=== PATIENT | female | born 1990 | race Caucasian/White ===

== ENCOUNTER 2019-02-10 20:43 | Emergency (ER) | payer MEDICAID, OTHER ==
[2019-02-11] MEDS ORDERED: CYCLOBENZAPRINE HCL 10 MG TABLET PO ONE (00:25)
[2019-02-11] MEDS ORDERED: KETOROLAC TROMETHAMINE 60 MG/2 ML SDV IM ONE (00:25)
[2019-02-11] MEDS ORDERED: LIDOCAINE 5% (700 MG) TRANSDERMAL ADH..PATCH TP ONE (00:26)
--- NOTE | 2019-02-11 00:32 | ER Document Report ---
ED General - General Chief Complaint: Low Back Pain Stated Complaint: BACK INJURY Time Seen by Provider: 02/10/19 23:55 Primary Care Provider: [facility] [Other] - Follow up tomorrow LYNNE MCCLELLAN MD [ACTIVE STAFF] - Follow up as needed Mode of Arrival: Ambulatory Information source: Patient TRAVEL OUTSIDE OF THE [place] IN LAST 30 DAYS: No - HPI Patient complains to provider of: Low back pain Onset: This morning Onset/Duration: Sudden Quality of pain: Sharp Severity: Severe Pain Level: 5 Associated symptoms: None Exacerbated by: Movement, Walking Relieved by: Denies Similar symptoms previously: No Recently seen / treated by doctor: No Notes: 28-year-old female coming in today with low back pain. 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 She felt a snap sensation in the low part of her back. Came here to be evaluated. Denies bladder bowel dysfunction. Denies saddle anesthesia. Denies focal weakness. No previous history of back trouble. - Related Data Allergies/Adverse Reactions: povidone-iodine [From Betadine] Allergy (Severe, Verified 02/10/19 21:00) Soap [From Betadine] Allergy (Severe, Verified 02/10/19 21:00) Past Medical History - General Information source: Patient - Social History Smoking Status: Unknown if Ever Smoked Family History: Reviewed & Not Pertinent Patient has suicidal ideation: No Patient has homicidal ideation: No Pulmonary Medical History: Reports: Hx Asthma Neurological Medical History: Reports: Hx Migraine Renal/ Medical History: Denies: Hx Peritoneal Dialysis - Immunizations Immunizations up to date: Yes Hx Diphtheria, Pertussis, Tetanus Vaccination: No - unknown Review of Systems - Review of Systems Notes: Constitutional: No fevers. No chills. EENT: No eye redness. No eye pain. No ear pain. No sore throat. Cardiovascular: No chest pain. No palpitations. Respiratory: No cough. No shortness of breath. No respiratory distress. Gastrointestinal: No abdominal pain. No nausea, vomiting, or diarrhea. Genitourinary: Atraumatic. No lesions. No pain. No discharge. Musculoskeletal: Atraumatic. No swelling. No deformities. Positive for low back pain Skin: No rash or lesions. Lymphatic: No swollen lymph nodes. Neurologic: No headache. No syncope. Psychiatric: No suicidal or homicidal ideation. Physical Exam - Vital signs Vitals: Temp Pulse Resp BP Pulse Ox 97.3 F 77 16 138/80 H 100 02/10/19 22:19 02/10/19 22:19 02/10/19 22:19 02/10/19 22:19 02/10/19 22:19 - Notes Notes: General: Well-developed, well-nourished. In no acute distress. Non-toxic appearing. Cardiac: Well-perfused. Regular rate and rhythm. No murmurs, rubs, or gallops. Pulmonary: No respiratory distress. No cyanosis. Bilateral lung fiels are clear to auscultation. Abdominal: Non-distended. Non-rigid. Bowels sounds are present in all four quadr ants. No guarding or rebound. HEENT: Head is atraumatic. Conjunctivae not reddened. No tearing. PERRL. EOMI. Orbits atraumatic. No periorbital swelling or erythema. Oropharynx is without erythema, swelling, or exudates. Neck: Supple. No adenopathy. No meningismus. Dermatologic: Warm with good turgor. No rash. Atraumatic. Chest: Atraumatic. No chest wall tenderness to palpation. Musculoskeletal: Moves all extremities well. No range of motion deficits. There is tenderness to the mid lumbosacral region in the right lumbosacral region. There is no bony step-off. Genitourinary: Examination deferred Neurologic: No gross neurologic deficits. Psychiatric: Normal mood. Course - Re-evaluation Re-evalutation: 02/11/19 00:31 Initial workup for low back injury. X-rays being done. Medications ordered. 02/11/19 02:21 Apparently the patient was concerned because she thought that we were not offering her an MRI because we thought that she did not have the ability to pay for one. I had a lengthy conversation with the patient and her father at her request to explain why we were not doing an MRI scan tonight. After a long conversation, the patient does understand that there is a protocol for when an MRI scan can be ordered in the emergency department and that the patient did not meet criteria for an emergent MRI of her back. 02/11/19 02:27 Patient is still in a fair amount of pain. We will go ahead and give her some subcutaneous Dilaudid and some Zofran. And we will recheck her shortly to see how she is feeling. 02/11/19 03:06 Patient is feeling significantly better after the Dilaudid shot and is feeling pretty to go home. Again we discussed the process that is ahead. Discussed her prescriptions and how to proceed from here. She is content with the plan and her father is also understanding where to go from here she understands that we are here for her if they need us. - Vital Signs Vital signs: Temp Pulse Resp BP Pulse Ox 97.3 F 77 16 138/80 H 100 02/10/19 22:19 02/10/19 22:19 02/10/19 22:19 02/10/19 22:19 02/10/19 22:19 Discharge - Discharge Clinical Impression: Low back pain Qualifiers: Chronicity: acute Back pain laterality: unspecified Sciatica presence: without sciatica Qualified Code(s): M54.5 - Low back pain Condition: Good Disposition: HOME, SELF-CARE Instructions: Ice Packs ([facility]), Low Back Pain ([facility]), Muscle Strain ([facility]), Oral Narcotic Medication ([facility]) Additional Instructions: As per our discussion, you need to work diligently to get this Workmen's Comp. claim started and follow-up as soon as possible with the Workmen's Comp. doctor so that further evaluation and treatment can take place. You are always welcome to return to the emergency department if you are having worsening symptoms. Prescriptions: Tizanidine HCl [Zanaflex 4 Mg Tablet] 4 mg PO Q6HP PRN #20 tablet PRN Reason: Hydrocodone/Acetaminophen [Delong 5-325 Tablet] 1 - 2 each PO Q6H #15 tablet Naproxen 500 mg PO BID 5 Days #14 tablet Forms: Special Work Note Referrals: [facility] [Other] - Follow up tomorrow LYNNE MCCLELLAN MD [ACTIVE STAFF] - Follow up as needed
--- NOTE | 2019-02-11 01:20 | RADIOLOGY REPORT (SQ) ---
EXAM: X-ray lumbar spine AP, lateral and obliques CLINICAL DATA: 28-year-old female with low back pain TECHNICAL DATA: AP, both obliques, lateral and coned lateral x-ray views of the lumbosacral junction. Comparison: 02/11/2019 at 12:44 AM. FINDINGS: Five lumbar type vertebrae are identified. The vertebral body height and intervertebral disc space height are normal. The alignment is normal. There is no evidence of fracture or subluxation. There are no significant degenerative changes of the lumbar spine. The pedicles appear intact. Bone mineralization is normal. The sacroiliac joints are within normal limits. IMPRESSION: Normal radiographic examination of the lumbar spine.
[2019-02-11] MEDS ORDERED: ONDANSETRON 4 MG TAB.RAPDIS PO ONE (02:25)
[2019-02-11] MEDS ORDERED: HYDROMORPHONE HCL INJ/PF 2 MG/ML AMPULE SUBCUT ONE (02:25)
[2019-02-11] MEDS ORDERED: HYDROCODONE/ACETAMINOPHEN 5-325 MG (6 TAB/ER DISP) PO PRN (02:57)
[2019-02-11 03:20] VITALS: BP 140/82
== END 2019-02-11 03:19 | disposition home or self-care (01) ==
LOC: ER 20:43
DX: M54.5 Low back pain (principal); X50.0XXA Overexertion from strenuous movement or load, initial encounter; J45.909 Unspecified asthma, uncomplicated
CPT/HCPCS: 99283; 96372; 72110; J1885; S0119; J1170

== ENCOUNTER 2019-07-15 20:44 | Emergency (ER) | payer SELFPAY ==
[2019-07-15 20:54] VITALS: BP 162/86
--- NOTE | 2019-07-15 21:43 | RADIOLOGY REPORT (SQ) ---
2 VIEWS OF RIGHT FOOT AND ANKLE EXAM DATE: 07/15/2019 12:00 AM CDT HISTORY: Bone pain. COMPARISON: None. FINDINGS: No acute fracture or dislocation is seen. The joint spaces are preserved. The soft tissues are unremarkable. IMPRESSION: No acute fracture or malalignment.
[2019-07-15] MEDS ORDERED: IBUPROFEN 800 MG TABLET PO ONE (22:47)
--- NOTE | 2019-07-15 22:51 | ER Document Report ---
ED Extremity Problem, Lower - General Chief Complaint: Fall Injury Stated Complaint: FALL-RIGHT ANKLE PAIN Time Seen by Provider: 07/15/19 22:36 Primary Care Provider: [facility] [Provider Group] - Follow up as needed Mode of Arrival: Wheelchair Information source: Patient Notes: 28-year-old female presented to ED for complaint of pain to her right ankle. [place] popped this morning. She states she walked on it some more than it to 30 she picked up her daughter went home and rested it at 530 when she got up she was not able to walk on the foot. She states she does have tramadol at home and she took 1 of those with no relief. Decided she needed to come to the emergency room to make sure she did not have a break or needed a splint or something. She is alert oriented respirations regular and unlabored speaking in full sentences. TRAVEL OUTSIDE OF THE [place] IN LAST 30 DAYS: No - HPI Patient complains to provider of: Injury, Pain, Swelling Location: Ankle - Right Occurred: This morning Where: Outdoors, Public place Onset/Duration: Gradual Quality of pain: Achy, Throbbing Severity: Moderate Pain Level: 4 Context: Twisted, Wearing shoes Recent injury: Yes Associated symptoms: Painful ambulation Exacerbated by: Hanging down, Movement, Walking Relieved by: Elevation, Ice, Rest - Related Data Allergies/Adverse Reactions: povidone-iodine [From Betadine] Allergy (Severe, Verified 02/10/19 21:00) Soap [From Betadine] Allergy (Severe, Verified 02/10/19 21:00) Past Medical History - General Information source: Patient - Social History Smoking Status: Current Every Day Smoker Cigarette use (# per day): Yes - 2 Cigarettes a day Chew tobacco use (# tins/day): No Smoking Education Provided: Yes - Minutes Frequency of alcohol use: Occasional Drug Abuse: None Occupation: clerk supervisor at [employer] Lives with: Family Family History: Reviewed & Not Pertinent Patient has suicidal ideation: No Patient has homicidal ideation: No - Past Medical History Cardiac Medical History: Reports: None Pulmonary Medical History: Reports: Hx Asthma Neurological Medical History: Reports: Hx Migraine Renal/ Medical History: Denies: Hx Peritoneal Dialysis - Immunizations Immunizations up to date: Yes Hx Diphtheria, Pertussis, Tetanus Vaccination: No - unknown Review of Systems - Review of Systems Constitutional: No symptoms reported EENT: No symptoms reported Cardiovascular: No symptoms reported Respiratory: No symptoms reported Gastrointestinal: No symptoms reported Genitourinary: No symptoms reported Female Genitourinary: No symptoms reported Musculoskeletal: Ankle swelling Skin: No symptoms reported Hematologic/Lymphatic: No symptoms reported Neurological/Psychological: No symptoms reported -: Yes All other systems reviewed and negative Physical Exam - Vital signs Vitals: Temp Pulse Resp BP Pulse Ox 98.9 F 102 H 18 162/86 H 98 07/15/19 20:51 07/15/19 20:51 07/15/19 20:51 07/15/19 20:51 07/15/19 20:51 Interpretation: Normal - General General appearance: Appears well, Alert - HEENT Head: Normocephalic, Atraumatic Eyes: Normal Pupils: PERRL - Respiratory Respiratory status: No respiratory distress Chest status: Nontender Breath sounds: Normal Chest palpation: Normal - Cardiovascular Rhythm: Regular Heart sounds: Normal auscultation Murmur: No - Abdominal Inspection: Normal Distension: No distension Bowel sounds: Normal Tenderness: Nontender Organomegaly: No organomegaly - Back Back: Normal, Nontender - Extremities General upper extremity: Normal inspection, Nontender, Normal color, Normal ROM, Normal temperature General lower extremity: Normal temperature. No: Merlin's sign Ankle: Tender, Ecchymosis, Edema. No: Abrasion, Deformity, Instability, Laceration, Limited ROM, Positive Pike's test, Unable to bear weight Foot: Tender - Painful to bear weight, Ecchymosis, Edema, Metatarsal compress. pain, No evidence of FB. No: Abrasion, Deformity, Instability, Navicular tenderness, Tender 5th metatarsal, Unable to bear weight - Full to bear weight - Neurological Neuro grossly intact: Yes Cognition: Normal Orientation: AAOx4 Colton Coma Scale Eye Opening: Spontaneous Cassidy Coma Scale Verbal: Oriented Cassidy Coma Scale Motor: Obeys Commands Colton Coma Scale Total: 15 Speech: Normal Motor strength normal: LUE, RUE, LLE, RLE Sensory: Normal - Psychological Associated symptoms: Normal affect, Normal mood - Skin Skin Temperature: Warm Skin Moisture: Dry Skin Color: Normal Course - Re-evaluation Re-evalutation: 07/15/19 22:57 The patient is nontoxic appearing with stable vitals. They are afebrile. Ankle exam shows no deformities with no obvious ligament instability. There is a normal pulse and sensation distally. There is no redness or signs of infection. X-rays show no acute fracture per the radiologist. Patient will be placed in an Shay wrap for comfort. Crutches will be offered and given if requested. Patient will be instructed to follow-up with not better in 1 week, sooner for increasing pain, fever, redness, numbness, tingling, weakness, any further c oncerns. Patient will be instructed to rest, ice, elevate their ankle. - Vital Signs Vital signs: Temp Pulse Resp BP Pulse Ox 98.8 F 102 H 20 162/86 H 98 07/15/19 20:52 07/15/19 20:52 07/15/19 20:52 07/15/19 20:52 07/15/19 20:52 - Diagnostic Test Radiology reviewed: Image reviewed, Reports reviewed Procedures - Immobilization Right Ankle Time completed: 22:57 Pre-Proc Neuro Vasc Exam: Normal Immobilizer type: Shay wrap, Ankle stirrup, Crutches Performed by: RN Post-Proc Neuro Vasc Exam: Normal Alignment checked and good: Yes Discharge - Discharge Clinical Impression: Ankle sprain Qualifiers: Encounter type: initial encounter Involved ligament of ankle: unspecified ligament Laterality: right Qualified Code(s): S93.401A - Sprain of unspecified ligament of right ankle, initial encounter Condition: Stable Disposition: HOME, SELF-CARE Instructions: Family Physicians / Practices Additional Instructions: SPRAINED ANKLE: Your sprained ankle results from stretching or tearing of the ligaments which support the ankle. This usually results from twisting the foot inward and under. The ligaments will require time and protection in order to heal properly. Many ankle sprains are quite disabling, and should be taken seriously. The usual treatment for an ankle sprain is cold packs; protection with tape, splints, or wraps; elevation; and staying off the ankle for at least a day. As the ankle improves, you can walk IF it's not painful to bear weight. Sports are best postponed until healing is complete. More serious sprains usually require strengthening exercises after early healing. Your physician has assessed the seriousness of the ligament injury to your ankle. However, the treatment may change, depending on how your ankle progresses. If further exams were recommended, it is important that you follow through. Call the doctor if your foot becomes numb, painful, or severely swollen. ANKLE STIRRUP SPLINT: You are to use an ankle brace called a stirrup splint. This type of brace allows you to place greater stresses on the ankle without risk of re-injury, and is often used for more severe ankle injuries such as avulsion fractures and ligament ruptures. The splint can be worn over a sock or tape. For proper support, wear the splint with a shoe over it. It's important that the splint fit properly. Adjust the heel tension, if needed. If your splint has air bladders, peel back the bottom of each air bladder, then move the Velcro attachment of the heel strap up or down. Air bladder pressure can be adjusted by pulling up the valve at the top, threading the air tube down into the main bladder, then blowing air into the bladder or squeezing it out. The two sides of the stirrup can be moved forward or back on your ankle by changing the attachment of the main straps. If you are unable to use the ankle comfortably in the splint, return for re-evaluation. SHAY WRAP: A compression dressing (shay wrap) has been placed. This helps hold the are a still. It limits swelling and internal bleeding. The wrap should be comfortably snug -- not tight. You should feel a sense of pressure, but not severe pain under the wrap. Unless the physician tells you otherwise, you can adjust the wrap for comfort. If the wrap causes symptoms suggesting it's too tight -- uncomfortable pressure, swelling or discoloration beyond the wrap, numbness, or severe pain -- you must loosen the wrap. If these symptoms don't resolve promptly, return for re-evaluation. USE OF CRUTCHES: The doctor has recommended that you not bear weight at this time. You will need to use crutches. Adjust the crutches so the tops come to about two inches under the armpit while you are standing upright. Use your hands -- not your armpits -- to support your weight. To get into a chair, support yourself with one crutch on the injured side. Hold the chair with the other hand, then lower yourself while putting all your weight on the good leg. Going up stairs is `good leg up, step up, then bring up crutches and bad leg.' Down stairs is `bad leg and crutches down, then bring good leg down.' If you develop numbness or swelling in an arm or hand, you are using the crutches incorrectly. Return if you are having any problems with the crutches. ICE & ELEVATION: Apply ice packs frequently against the painful area. Many different schedules are recommended, such as "20 minutes on, 20 minutes off" or "one hour ice, two hours rest." If you need to work, you may need to go longer between ice treatments. You should plan to have the area ice packed AT LEAST one-fourth of the time. The ice should be applied over the wrap, tape, or splint, or over a layer of cloth -- not directly against the skin. Some ice bags have a built-in cloth and can be put directly on the skin. Your injured part should be elevated as much as possible over the next 48 hours. Try to keep the injury above the level of the heart. Avoid use of the injured area. Elevation and rest will decrease the swelling. USE OF [id number] IBUPROFEN: Ibuprofen (Advil, Nuprin, Medipren, Motrin IB) is a medication for fever and pain control. In addition, it has anti- inflammatory effects which may be beneficial, especially in the treatment of injuries. It's best to take ibuprofen with food. Persons with ulcer disease or allergy to aspirin should notify their physician of this before taking ibuprofen. Ibuprofen can be given every four to six hours, for a total of four doses daily. Age Pain or fever dose Antiinflammatory dose 6-8 yr 200 mg (1 tab) 200 mg (1 tab) 9-11 yr 200 mg (1 tab) 200-400 mg (1-2 tab) 11-14 yr 200-400 mg (1-2 tab) 400 mg (2 tab) 15-adult 400 mg (2 tab) 600 mg (3 tab) FOLLOW-UP CARE: If you have been referred to a physician for follow-up care, call the [facility] office for an appointment as you were instructed or within the next two days. If you experience worsening or a significant change in your symptoms, notify the physician immediately or return to the Emergency Department at any time for re-evaluation. Forms: Return to Work Referrals: [facility] ([place]) [Provider Group] - Follow up as needed
== END 2019-07-15 23:27 | disposition home or self-care (01) ==
LOC: ER 20:44
PROC: 2W3QX1Z Immobilization of Right Lower Leg using Splint (ICD-10-PCS; principal; 2019-07-15)
DX: S93.401A Sprain of unspecified ligament of right ankle, initial encounter (principal); M25.571 Pain in right ankle and joints of right foot; M79.89 Other specified soft tissue disorders; W01.0XXA Fall on same level from slipping, tripping and stumbling without subsequent striking against object, initial encounter; Z79.899 Other long term (current) drug therapy; F17.210 Nicotine dependence, cigarettes, uncomplicated; J45.909 Unspecified asthma, uncomplicated
CPT/HCPCS: L1902

== ENCOUNTER → 2020-01-18 | Outpatient (CLI) | payer SELFPAY ==
--- NOTE | 2020-01-18 15:07 | RADIOLOGY REPORT (SQ) ---
EXAM DESCRIPTION: U/S VA2NGUM TRNABD 1GES W/ODOP COMPLETED DATE/TIME: 01/18/2020 2:54 pm REASON FOR STUDY: ENCOUNTER FOR SUPRVSN OF NORMAL , FIRST TRIMESTER Z34.81 ENCOUNTER FOR S UPRVSN OF NORMAL , FIRST TRIM COMPARISON: None. TECHNIQUE: Transvaginal static and realtime grayscale images acquired of the pelvis. Additional manjit cted spectral and color Doppler images recorded. All images stored on PACs. bHCG: Not available. CLINICAL DATES: Not Available. LIMITATIONS: None. FINDINGS: FETUS: Single Living intrauterine . ULTRASOUND EGA: 6 weeks 3 days ULTRASOUND YAMILETH: 09/09/2020 EFW: Not applicable less than 20 weeks. CRL: 6 mm FHR: 124 beats per minute. SURVEY: No visualized anomalies. AMNIOTIC FLUID: Adequate amount. PLACENTA: Not yet developed due to early gestation. SUBCHORIONIC BLEED: Yes. SIZE OF BLEED: 10 mm. UTERUS: No masses. No anomalies. CERVICAL LENGTH: 2.1 cm. Closed. RIGHT ADNEXA: Ovary not identified due to poor acoustical window. No adnexal free fluid. No adnexal masses. LEFT ADNEXA: Normal ovary with normal vascular flow. No adnexal free fluid. No adnexal masses. FREE FLUID: None. OTHER: No other significant finding. IMPRESSION: LIVING INTRAUTERINE . EGA 6 weeks 3 days. Small subchronic hemorrhage. Trimester of : First trimester - 0 to 13 weeks. TECHNICAL DOCUMENTATION: JOB ID: [id number] 2010 [employer]- All Rights Reserved rev Reading location - IP/workstation name: [email or web address]
== END ==
LOC: RAD 13:35
PROVIDERS: ATTEND Midwife
DX: Z34.81 Encounter for supervision of other normal pregnancy, first trimester (principal)
CPT/HCPCS: 76801

== ENCOUNTER 2020-04-30 13:41 | Outpatient (CLI) | payer MEDICAID ==
[2020-04-30 14:40] LABS: APPEARANCE,URINE SLIGHTLY-CLOUDY; BILIRUBIN,URINE NEGATIVE (NEGATIVE); COLOR,URINE YELLOW; GLUCOSE, URINE NEGATIVE (NEGATIVE); KETONES,URINE NEGATIVE (NEGATIVE); LEUKOCYTE ESTERASE,URINE NEGATIVE (NEGATIVE); NITRITE,URINE NEGATIVE (NEGATIVE); PROTEIN,URINE NEGATIVE (NEGATIVE); URINE SPECIFIC GRAVITY 1.014; UROBILINOGEN,URINE NEGATIVE mg/dL (<2.0)
[2020-04-30 14:41] LABS: BACTERIA (WET MOUNT) 4+ BACTERIA SEEN; EPITHELIALS (WET MOUNT) 4+ EPITHELIALS SEEN; RBCS (WET MOUNT) RARE RBCS SEEN; WBCS (WET MOUNT) 2+ WBCS SEEN; YEAST (WET MOUNT) NO YEAST SEEN
[2020-04-30 14:42] LABS: T.VAGINALIS (WET MOUNT) NO TRICHOMONAS SEEN
[2020-04-30] MEDS ORDERED: RINGERS SOLUTION,LACTATED 1,000 ML IV ONE (14:50)
[2020-04-30] MEDS ORDERED: RINGERS SOLUTION,LACTATED 1,000 ML IV PRN (14:50)
[2020-04-30] MEDS ORDERED: BUTALB/ACETAMINOPHEN/CAFFEINE 1 TAB EACH PO PRN (14:51)
[2020-04-30] MEDS ORDERED: CEFTRIAXONE INJ 1000 MG VIAL ONE (14:53)
[2020-04-30] MEDS ORDERED: BUTALB/ACETAMINOPHEN/CAFFEINE 1 TAB EACH ONE (14:53)
[2020-04-30 14:59] LABS: URINE AMPHETAMINES SCREEN NEGATIVE; URINE BARBITURATES SCREEN NEGATIVE; URINE COCAINE SCREEN NEGATIVE; URINE METHADONE SCREEN NEGATIVE; URINE PHENCYCLIDINE SCREEN NEGATIVE
[2020-04-30 15:04] LABS: URINE BENZODIAZEPINES SCREEN UNCONFIRMED POSITIVE; URINE MARIJUANA (THC) SCREEN UNCONFIRMED POSITIVE
--- NOTE | 2020-04-30 15:15 | RADIOLOGY REPORT (SQ) ---
EXAM DESCRIPTION: U/S OB LIMITED IMAGES COMPLETED DATE/TIME: 04/30/2020 2:46 pm REASON FOR STUDY: cramping. cervical length, FWB COMPARISON: 01/18/2020 TECHNIQUE: Limited transabdominal grayscale ultrasound for evaluation of specific requested obstetri anamika parameters. LIMITATIONS: None. FINDINGS: CERVICAL LENGTH: 3.9 cm Closed. JAZMIN: 8.8 cm . FHR: 149 beats per minute. PRESENTATION: Breech. PLACENTA: Posterior ANATOMY: Not assessed OTHER: Composite age 22 weeks 2 days. EDC 09/01/2020. EFW 490 g. IMPRESSION: LIMITED OBSTETRICAL ULTRASOUND WITH MEASURED PARAMETERS DELINEATED ABOVE. Trimester of : Second trimester - 13 weeks 1 day to 27 weeks 6 days. TECHNICAL DOCUMENTATION: JOB ID: [id number] 2010 [employer]- All Rights Reserved Reading location - IP/workstation name: [email or web address]
[2020-04-30 15:19] LABS: BACTERIA (WET MOUNT) 4+ BACTERIA SEEN; EPITHELIALS (WET MOUNT) 4+ EPITHELIALS SEEN; RBCS (WET MOUNT) FEW RBCS SEEN; T.VAGINALIS (WET MOUNT) NO TRICHOMONAS SEEN; WBCS (WET MOUNT) 2+ WBCS SEEN; YEAST (WET MOUNT) NO YEAST SEEN
[2020-04-30] MEDS ORDERED: CEFTRIAXONE 1 GM/D5W RTU 1 GM/50 ML RTUPB IV ONE (15:30)
[2020-04-30 16:07] LABS: CHLAM PCR NOT DETECTED (NOT DETECT)
== END 2020-04-30 16:53 | disposition home or self-care (01) ==
LOC: LC 13:41
PROVIDERS: ATTEND Student in an Organized Health Care Education/Training Program
DX: O23.42 Unspecified infection of urinary tract in pregnancy, second trimester (principal); Z3A.21 21 weeks gestation of pregnancy
CPT/HCPCS: 59899; 87086; 87210; 81001; 80307; 80345; 87491; 87591; 76815; Q0114; G0480 ×5; J3490; J0696; 80349

== ENCOUNTER 2020-07-11 17:44 | Outpatient (CLI) | payer MEDICAID ==
[2020-07-11 19:34] LABS: APPEARANCE,URINE SLIGHTLY-CLOUDY; BILIRUBIN,URINE NEGATIVE (NEGATIVE); CALCIUM OXALATE CRYSTALS,URINE RARE /HPF; COLOR,URINE YELLOW; GLUCOSE, URINE NEGATIVE (NEGATIVE); KETONES,URINE NEGATIVE (NEGATIVE); LEUKOCYTE ESTERASE,URINE NEGATIVE (NEGATIVE); NITRITE,URINE NEGATIVE (NEGATIVE); PROTEIN,URINE 30 mg/dL (NEGATIVE); URINE SPECIFIC GRAVITY 1.023
[2020-07-11 19:48] LABS: URINE AMPHETAMINES SCREEN NEGATIVE; URINE BARBITURATES SCREEN NEGATIVE; URINE BENZODIAZEPINES SCREEN NEGATIVE; URINE COCAINE SCREEN NEGATIVE; URINE MARIJUANA (THC) SCREEN NEGATIVE; URINE METHADONE SCREEN NEGATIVE; URINE PHENCYCLIDINE SCREEN NEGATIVE
== END 2020-07-11 18:38 | disposition home or self-care (01) ==
LOC: LC 17:44
PROVIDERS: ATTEND Obstetrics & Gynecology
DX: O26.893 Other specified pregnancy related conditions, third trimester (principal); R10.2 Pelvic and perineal pain; Z3A.31 31 weeks gestation of pregnancy; Z91.048 Other nonmedicinal substance allergy status
CPT/HCPCS: 80307; 81001